=== PATIENT | female | born 1980 | race Two or more races ===

== ENCOUNTER 2019-02-11 08:14 | Emergency (ER) | payer MEDICAID ==
[~2019-02-11] VITALS: Ht 154.9 cm; Wt 58.1 kg
[~2019-02-11 08:14] MED LIST: IBUPROFEN600 MG ORAL; IBUPROFEN600 MG PO; NORCO 5-325 TA1 EACH PO; ROBAXIN-750750 MG PO
[2019-02-11] MEDS ORDERED: NKM (08:25)
--- NOTE | 2019-02-11 08:30 | NUR ---
ED Nurse Note: PT WALKED IN TO ER TODAY FROM HOME. AOX4. PT C/O ABDOMINAL CRAMPING AND VAGINAL BLEEDING X THIS AM AROUND 0500. PT STATES SHE HAS BEEN CHANGING ONE PAD PER HOUR BUT STATES PADS WERE NOT SOAKED. PER PT, BLOOD IS BRIGHT RED WITH NO CLOTS. PT STATES SHE IS 6 WEEKS WHICH WAS CONFIRMED BY PRECISION LATHE OPERATOR, DR. BRIAN BARAJAS. LMP: 12/28/18. LAST APPT WITH OB: 02/04/19.
[2019-02-11 09:03] LABS: APPEARANCE,URINE CLEAR; BASOPHILS % (AUTO) 0.9 % (0.0-2.0); BILIRUBIN, URINE NEGATIVE (NEGATIVE); COLOR,URINE PALE YELLOW; EOSINOPHILS % (AUTO) 2.1 % (0.0-3.0); GLUCOSE, URINE (UA) NEGATIVE (NEGATIVE); HEMATOCRIT 33.9 % (37.0-47.0); HEMOGLOBIN 11.4 G/DL (12.0-16.0); KETONES,URINE NEGATIVE (NEGATIVE); LEUKOCYTE ESTERASE ,URINE NEGATIVE (NEGATIVE); LYMPHOCYTES % (AUTO) 25.8 % (20.0-45.0); MEAN CORPUSCULAR VOLUME 90 FL (80-99); MONOCYTES % (AUTO) 6.3 % (1.0-10.0); NEUTROPHILS % (AUTO) 64.9 % (45.0-75.0); NITRITE,URINE NEGATIVE (NEGATIVE); PH,URINE 5 (4.5-8.0); PLATELET COUNT 272 K/UL (150-450); PROTEIN,URINE NEGATIVE (NEGATIVE); RED BLOOD COUNT 3.78 M/UL (4.20-5.40); RED CELL DISTRIBUTION WIDTH 12.1 % (11.6-14.8); UROBILINOGEN,URINE NORMAL MG/DL (0.0-1.0); WHITE BLOOD COUNT 11.5 K/UL (4.8-10.8)
--- NOTE | 2019-02-11 09:03 | NUR ---
ED Nurse Note: PT TO US VIA TRA.
[2019-02-11 09:16] LABS: ALANINE AMINOTRANSFERASE 22 U/L (12-78); ALBUMIN 3.2 G/DL (3.4-5.0); ALKALINE PHOSPHATASE 51 U/L (46-116); ANION GAP 9 mmol/L (5-15); ASPARTATE AMINO TRANSFERASE 12 U/L (15-37); BILIRUBIN,TOTAL 0.1 MG/DL (0.2-1.0); BLOOD UREA NITROGEN 11 mg/dL (7-18); CALCIUM 8.4 MG/DL (8.5-10.1); CARBON DIOXIDE 25 MMOL/L (21-32); CHLORIDE 104 MMOL/L (98-107); CREATININE 0.8 MG/DL (0.55-1.30); POTASSIUM 3.7 MMOL/L (3.5-5.1); SODIUM 138 MMOL/L (136-145)
--- NOTE | 2019-02-11 09:45 | NUR ---
ED Nurse Note: PT BACK FROM US VIA TRA.
--- NOTE | 2019-02-11 10:26 | Emergency Room Report ---
History of Present Illness General Chief Complaint: Complications Source: Patient Present Illness HPI 38-year-old female presents ED for evaluation. Patient complaining of vaginal bleeding and cramping pain. Started this morning. Pain is dull, 5 out of 10, nonradiating. States she is about 6 weeks . States that she has an IUP confirmed by her [employer]. States that she had 2 prior pregnancies which resulted and and were . States she had preeclampsia on her first . States that she did have one elective . No other aggravating relieving factors. Denies any other associated symptoms Allergies: Coded Allergies: No Known Allergies (Unverified , 02/11/19) Patient History Past Medical History: other - preeclampsia Past Surgical History: Pertinent Family History: none Social History: Denies: smoking, alcohol use, drug use Now: Yes : 4 Immunizations: UTD Reviewed Nursing Documentation: PMH: Agreed; PSxH: Agreed Nursing Documentation-PMH Past Medical History: No Stated History Hx Gastrointestinal Problems: Yes - gallstones Review of Systems All Other Systems: negative except mentioned in HPI Physical Exam Vital Signs Date Time Temp Pulse Resp B/P (MAP) Pulse Ox O2 Delivery O2 Flow Rate FiO2 02/11/19 08:22 98.6 81 16 98/65 99 Room Air Sp02 EP Interpretation: reviewed, normal General Appearance: no apparent distress, alert, GCS 15, non-toxic Head: normocephalic, atraumatic Eyes: bilateral eye normal inspection, bilateral eye PERRL ENT: hearing grossly normal, normal pharynx, no angioedema, normal voice Neck: full range of motion, supple/symm/no masses Respiratory: chest non-tender, lungs clear, normal breath sounds, speaking full sentences Cardiovascular #1: regular rate, rhythm, no edema Cardiovascular #2: 2+ carotid (R), 2+ carotid (L), 2+ radial (R), 2+ radial (L) , 2+ dorsalis pedis (R), 2+ dorsalis pedis (L) Gastrointestinal: normal bowel sounds, non tender, soft, non-distended, no guarding, no rebound Rectal: deferred Genitourinary: normal inspection, no CVA tenderness Musculoskeletal: back normal, gait/station normal, normal range of motion, non- tender Neurologic: alert, oriented x3, responsive, motor strength/tone normal, sensory intact, speech normal Psychiatric: judgement/insight normal, memory normal, mood/affect normal, no suicidal/homicidal ideation Reflexes: 3+ bicep (R), 3+ bicep (L), 3+ tricep (R), 3+ tricep (L), 3+ knee (R) , 3+ knee (L) Skin: normal color, no rash, warm/dry, well hydrated Lymphatic: no adenopathy Medical Decision Making Diagnostic Impression: Primary Impression: Twin gestation in first trimester Qualified Codes: O30.001 - Twin , unspecified number of placenta and unspecified number of amniotic sacs, first trimester Additional Impressions: Threatened Subchorionic hemorrhage Qualified Codes: O41.8X10 - Other specified disorders of amniotic fluid and membranes, first trimester, not applicable or unspecified; O46.8X1 - Other antepartum hemorrhage, first trimester ER Course Hospital Course 38-year-old female presents to ED complaining of cramping pain, spotting. about 6 weeks Differential diagnoses include: gastrits, gastroenterits, ectopic , ovarian torsion/cyst, UTI Clinical course Patient placed on stretcher in ED. After initial history and physical I ordered labs, IV fluids and OB US Labs-no leukocytosis, electrolytes okay, UA negative OB ultrasound- twin gestations with subcorionic hemorrhage. about 7 weeks age Discussed findings with patient. Informed of twin . Explained that subchorionic hemorrhage requires no immediate intervention and be followed up with her [employer]. Given copies of labs and ultrasound report. Safe for discharge and close outpatient follow-up Diagnosis - twin gestation in 1st trimester, threatened , subchorionic hemorrhage Stable and discharged to home. Followup with PMD/[employer]. Return to ED if symptoms recur or worsen Labs Test 02/11/19 08:50 White Blood Count 11.5 K/UL (4.8-10.8) Red Blood Count 3.78 M/UL (4.20-5.40) Hemoglobin 11.4 G/DL (12.0-16.0) Hematocrit 33.9 % (37.0-47.0) Mean Corpuscular Volume 90 FL (80-99) Mean Corpuscular Hemoglobin 30.2 PG (27.0-31.0) Mean Corpuscular Hemoglobin Concent 33.7 G/DL (32.0-36.0) Red Cell Distribution Width 12.1 % (11.6-14.8) Platelet Count 272 K/UL (150-450) Mean Platelet Volume 8.6 FL (6.5-10.1) Neutrophils (%) (Auto) 64.9 % (45.0-75.0) Lymphocytes (%) (Auto) 25.8 % (20.0-45.0) Monocytes (%) (Auto) 6.3 % (1.0-10.0) Eosinophils (%) (Auto) 2.1 % (0.0-3.0) Basophils (%) (Auto) 0.9 % (0.0-2.0) Urine Color Pale yellow Urine Appearance Clear Urine pH 5 (4.5-8.0) Urine Specific Chancellor 1.010 (1.005-1.035) Urine Protein Negative (NEGATIVE) Urine Glucose (UA) Negative (NEGATIVE) Urine Ketones Negative (NEGATIVE) Urine Blood 4+ (NEGATIVE) Urine Nitrite Negative (NEGATIVE) Urine Bilirubin Negative (NEGATIVE) Urine Urobilinogen Normal MG/DL (0.0-1.0) Urine Leukocyte Esterase Negative (NEGATIVE) Urine RBC 2-4 /HPF (0 - 2) Urine WBC 2-4 /HPF (0 - 2) Urine Squamous Epithelial Cells Few /LPF (NONE/OCC) Urine Bacteria Occasional /HPF (NONE) Urine HCG, Qualitative Positive (NEGATIVE) Sodium Level 138 MMOL/L (136-145) Potassium Level 3.7 MMOL/L (3.5-5.1) Chloride Level 104 MMOL/L (98-107) Carbon Dioxide Level 25 MMOL/L (21-32) Anion Gap 9 mmol/L (5-15) Blood Urea Nitrogen 11 mg/dL (7-18) Creatinine 0.8 MG/DL (0.55-1.30) Estimat Glomerular Filtration Rate > 60 mL/min (>60) Glucose Level 81 MG/DL (74-106) Calcium Level 8.4 MG/DL (8.5-10.1) Total Bilirubin 0.1 MG/DL (0.2-1.0) Aspartate Amino Transf (AST/SGOT) 12 U/L (15-37) Alanine Aminotransferase (ALT/SGPT) 22 U/L (12-78) Alkaline Phosphatase 51 U/L (46-116) Total Protein 6.5 G/DL (6.4-8.2) Albumin 3.2 G/DL (3.4-5.0) Globulin 3.3 g/dL Albumin/Globulin Ratio 1.0 (1.0-2.7) Lipase 131 U/L (73-393) Human Chorionic Gonadotropin, Quant 280839 mIU/mL (1-6) CT/MRI/US Diagnostic Results CT/MRI/US Diagnostic Results : Imaging Test Ordered: OB US Impression Findings: There is an intrauterine twin gestation. 2 gestational sacs are demonstrated. That closer to the cervix, labeled twin A, demonstrates a crown- rump length of 9 mm, corresponding to an estimated gestational age of 6 weeks 6 days. It demonstrates positive heart activity, heart rate 142 bpm. That labeled B demonstrates a crown-rump length of 10 mm, corresponding to estimated gestational age of 7 weeks one day. It demonstrates positive heart activity, heart rate 133 bpm. There is a sizable subchorionic hemorrhage in the lower uterine segment posterior to the twin A gestational sac. This measures approximately 3.1 x 2 cm. The cervix is closed, endocervical canal measures 4.2 cm in length. The uterus measures 11.6 any length by 5.4 cm AP, is retroflexed. The right ovary measures 2.9 cm in length. The left ovary could not be demonstrated. Right ovary demonstrates normal blood flow on Doppler imaging. No free cul-de-sac fluid. Last Vital Signs Date Time Temp Pulse Resp B/P (MAP) Pulse Ox O2 Delivery O2 Flow Rate FiO2 02/11/19 08:22 98.6 81 16 98/65 99 Room Air Status: improved Disposition: HOME, SELF-CARE Condition: Stable Referrals: NON PHYSICIAN (PCP) José Miguel Hernandez MD Feb 11, 2019 10:26
--- NOTE | 2019-02-11 11:06 | Diagnostic Imaging Report ---
Indication: Vaginal bleeding and cramping, patient Technique: Transabdominal images only. Doppler interrogation of the bilateral ovaries. Comparison: none Findings: There is an intrauterine twin gestation. 2 gestational sacs are demonstrated. That closer to the cervix, labeled twin A, demonstrates a crown-rump length of 9 mm, corresponding to an estimated gestational age of 6 weeks 6 days. It demonstrates positive heart activity, heart rate 142 bpm. That labeled B demonstrates a crown-rump length of 10 mm, corresponding to estimated gestational age of 7 weeks one day. It demonstrates positive heart activity, heart rate 133 bpm. There is a sizable subchorionic hemorrhage in the lower uterine segment posterior to the twin A gestational sac. This measures approximately 3.1 x 2 cm. The cervix is closed, endocervical canal measures 4.2 cm in length. The uterus measures 11.6 any length by 5.4 cm AP, is retroflexed. The right ovary measures 2.9 cm in length. The left ovary could not be demonstrated. Right ovary demonstrates normal blood flow on Doppler imaging. No free cul-de-sac fluid. Impression: Live twin , estimated gestational age is 7 weeks one day and 6 weeks 6 days by crown-rump length measurement. 3.1 x 2 cm subchorionic hemorrhage noted Normal right ovary. Nonvisualized left ovary.
--- NOTE | 2019-02-11 11:10 | NUR ---
HAND-OFF: Report given to TIANA VILLALOBOS
[2019-02-11 13:00] VITALS: BP 105/72
--- NOTE | 2019-02-11 13:00 | NUR ---
ER DISCHARGE NOTE: Patient is cleared to be discharged per ERMD, pt is aox4, on room air, with stable vital signs. pt was given dc and prescription instructions, pt was able to verbalize understanding, pt id band and iv site removed without complications. pt is able to ambulate with steady gait. pt took all belongings.
== END 2019-02-11 13:00 | disposition home or self-care (01) ==
LOC: EMR 08:46
DX: O30.001 Twin pregnancy, unspecified number of placenta and unspecified number of amniotic sacs, first trimester (principal); O41.8X10 Other specified disorders of amniotic fluid and membranes, first trimester, not applicable or unspecified; O20.0 Threatened abortion; Z3A.01 Less than 8 weeks gestation of pregnancy
CPT/HCPCS: 36415; 76801; 76830; 80053; 81003; 81025; 83690; 84702; 85025; 96360; 99284

== ENCOUNTER 2020-04-28 17:22 | Emergency (ER) | payer MEDICAID ==
[~2020-04-28] VITALS: Ht 154.9 cm; Wt 61.2 kg
[~2020-04-28 17:22] MED LIST changes: +NKM
[2020-04-28 17:43] VITALS: BP 123/78
[2020-04-28 18:08] LABS: APPEARANCE,URINE CLEAR; BILIRUBIN, URINE NEGATIVE (NEGATIVE); COLOR,URINE PALE YELLOW; GLUCOSE, URINE (UA) NEGATIVE (NEGATIVE); KETONES,URINE 1+ (NEGATIVE); LEUKOCYTE ESTERASE ,URINE NEGATIVE (NEGATIVE); NITRITE,URINE NEGATIVE (NEGATIVE); PH,URINE 6 (4.5-8.0); PROTEIN,URINE NEGATIVE (NEGATIVE); UROBILINOGEN,URINE NORMAL MG/DL (0.0-1.0)
[2020-04-28 18:28] LABS: BASOPHILS % (AUTO) 0.6 % (0.0-2.0); EOSINOPHILS % (AUTO) 0.7 % (0.0-3.0); HEMATOCRIT 44.1 % (37.0-47.0); HEMOGLOBIN 14.6 G/DL (12.0-16.0); LYMPHOCYTES % (AUTO) 24.3 % (20.0-45.0); MEAN CORPUSCULAR VOLUME 92 FL (80-99); MONOCYTES % (AUTO) 5.4 % (1.0-10.0); PLATELET COUNT 248 K/UL (150-450); RED CELL DISTRIBUTION WIDTH 12.4 % (11.6-14.8); WHITE BLOOD COUNT 10.1 K/UL (4.8-10.8)
--- NOTE | 2020-04-28 18:28 | Emergency Room Report ---
History of Present Illness General Chief Complaint: Female Urogenital Problems Source: Patient Present Illness HPI 39-year-old female presents to the emergency department complaining of nonpainful vaginal bleeding x3 weeks. Patient reports 1 week prior to onset of her symptoms she had her period which is regular and typically very light. She denies suspicion for she states she has 2 8-month-old twins that she is not breast-feeding at home. She denies abdominal tenderness or pain. She denies nausea, vomiting, fevers, chills. Patient denies history of STI. She denies history of fibroids. She reports feeling fatigued more than normal she denies syncope or dizziness. Pt. with hx of migraines. Allergies: Coded Allergies: No Known Allergies (Unverified , 02/11/19) COVID-19 Screening Contact w/high risk pt: No Experienced COVID-19 symptoms?: No COVID-19 Testing performed DECISION SUPPORT MANAGER: Yes COVID-19 Screening: Negative COVID-19 COVID-19 Testing Source: [facility] - 2 weeks ago Patient History Past Medical History: see triage record Past Surgical History: none Pertinent Family History: none Now: No : 3 Para: 4 Reviewed Nursing Documentation: PMH: Agreed; PSxH: Agreed Nursing Documentation-PMH Past Medical History: No Stated History Hx Gastrointestinal Problems: Yes - gallstones Review of Systems All Other Systems: negative except mentioned in HPI Physical Exam Vital Signs Date Time Temp Pulse Resp B/P (MAP) Pulse Ox O2 Delivery O2 Flow Rate FiO2 04/28/20 17:27 97.0 83 20 114/79 (91) 100 Room Air Sp02 EP Interpretation: reviewed, normal General Appearance: no apparent distress, alert, GCS 15, non-toxic Head: normocephalic, atraumatic Eyes: bilateral eye normal inspection, bilateral eye PERRL ENT: hearing grossly normal, normal voice Neck: full range of motion Respiratory: lungs clear, normal breath sounds, speaking full sentences Cardiovascular #1: regular rate, rhythm Gastrointestinal: normal bowel sounds, non tender, soft, non-distended, no guarding Rectal: deferred Genitourinary: normal inspection, no CVA tenderness, adnexa normal, ext genitalia/vag normal, other - scant dark blood in vaginal vault Musculoskeletal: normal range of motion, gait/station normal, non-tender Neurologic: alert, motor strength/tone normal, oriented x3, sensory intact, responsive, speech normal Psychiatric: judgement/insight normal Skin: no rash, normal color Medical Decision Making PA Attestation Dr. Carnes Is my supervising Physician whom patient management has been discussed with. Diagnostic Impression: Primary Impression: Menorrhagia Qualified Codes: N92.0 - Excessive and frequent menstruation with regular cycle ER Course 39-year-old female presents to the emergency department complaining of nonpainful vaginal bleeding x3 weeks. Patient reports 1 week prior to onset of her symptoms she had her period which is regular and typically very light. She denies suspicion for she states she has 2 8-month-old twins that she is not breast-feeding at home. She denies abdominal tenderness or pain. She denies nausea, vomiting, fevers, chills. Patient denies history of STI. She denies history of fibroids. She reports feeling fatigued more than normal she denies syncope or dizziness. Pt. with hx of migraines. Ddx considered but are not limited to: Fibroid, ectopic , Malignancy, Spontaneous , , DUB Vital signs: are WNL, pt. is afebrile H&PE are most consistent with: Menorrhagia ORDERS: -CBC: WNL- no evidence of anemia -hcg quant: negative less than 1 - ABO type and Screen: O positive Pelvic/ abdominal US; WNL ED INTERVENTIONS: None at this time. -I do not identify an emergent condition at this time. With current presentation , pt. is stable for close outpatient follow up and conservative treatment. D/ w pt. to return promptly to ED with worsening or new symptoms.- Pt. verbalizes' understanding and agreement with proposed treatment plan.proposed treatment plan. DISCHARGE: At this time pt. is stable for d/c to home. Will provide printed patient care instructions, and any necessary prescriptions. Care plan and follow up instructions have been discussed with the patient prior to discharge. Labs Test 04/28/20 17:30 04/28/20 17:50 Urine Color Pale yellow Urine Appearance Clear Urine pH 6 (4.5-8.0) Urine Specific Ferguson 1.010 (1.005-1.035) Urine Protein Negative (NEGATIVE) Urine Glucose (UA) Negative (NEGATIVE) Urine Ketones 1+ (NEGATIVE) Urine Blood 3+ (NEGATIVE) Urine Nitrite Negative (NEGATIVE) Urine Bilirubin Negative (NEGATIVE) Urine Urobilinogen Normal MG/DL (0.0-1.0) Urine Leukocyte Esterase Negative (NEGATIVE) Urine RBC 2-4 /HPF (0 - 2) Urine WBC 0-2 /HPF (0 - 2) Urine Squamous Epithelial Cells Few /LPF (NONE/OCC) Urine Bacteria Occasional /HPF (NONE) White Blood Count 10.1 K/UL (4.8-10.8) Red Blood Count 4.80 M/UL (4.20-5.40) Hemoglobin 14.6 G/DL (12.0-16.0) Hematocrit 44.1 % (37.0-47.0) Mean Corpuscular Volume 92 FL (80-99) Mean Corpuscular Hemoglobin 30.3 PG (27.0-31.0) Mean Corpuscular Hemoglobin Concent 33.1 G/DL (32.0-36.0) Red Cell Distribution Width 12.4 % (11.6-14.8) Platelet Count 248 K/UL (150-450) Mean Platelet Volume 9.8 FL (6.5-10.1) Neutrophils (%) (Auto) 69.0 % (45.0-75.0) Lymphocytes (%) (Auto) 24.3 % (20.0-45.0) Monocytes (%) (Auto) 5.4 % (1.0-10.0) Eosinophils (%) (Auto) 0.7 % (0.0-3.0) Basophils (%) (Auto) 0.6 % (0.0-2.0) Sodium Level 139 MMOL/L (136-145) Potassium Level 3.8 MMOL/L (3.5-5.1) Chloride Level 102 MMOL/L (98-107) Carbon Dioxide Level 24 MMOL/L (21-32) Anion Gap 13 mmol/L (5-15) Blood Urea Nitrogen 11 mg/dL (7-18) Creatinine 1.0 MG/DL (0.55-1.30) Estimat Glomerular Filtration Rate > 60 mL/min (>60) Glucose Level 95 MG/DL (74-106) Calcium Level 8.8 MG/DL (8.5-10.1) Total Bilirubin 0.6 MG/DL (0.2-1.0) Aspartate Amino Transf (AST/SGOT) 18 U/L (15-37) Alanine Aminotransferase (ALT/SGPT) 23 U/L (12-78) Alkaline Phosphatase 59 U/L (46-116) Total Protein 8.1 G/DL (6.4-8.2) Albumin 4.6 G/DL (3.4-5.0) Globulin 3.5 g/dL Albumin/Globulin Ratio 1.3 (1.0-2.7) Human Chorionic Gonadotropin, Quant < 1 mIU/mL (1-6) CT/MRI/US Diagnostic Results CT/MRI/US Diagnostic Results : Imaging Test Ordered: Ultrasound pelvis transabdominal and transvaginal Impression "no acute abnormality." Per official radiology report- Please see report for specific details. Last Vital Signs Date Time Temp Pulse Resp B/P (MAP) Pulse Ox O2 Delivery O2 Flow Rate FiO2 04/28/20 17:43 97.0 79 18 123/78 99 Room Air Disposition: HOME, SELF-CARE Condition: Stable Referrals: NON PHYSICIAN (PCP) Cinthia Goode Comp. [facility] + [facility] Patient Instructions: Menorrhagia Additional Instructions: Take medications as directed. Follow up with a DUMPSTER OPERATOR within 3 days, even if your symptoms have resolved. Return sooner to ED if new symptoms occur, or current symptoms become worse. - Please note that this Emergency Department Report was dictated using [employer] technology software, occasionally this can lead to erroneous entry secondary to interpretation by the dictation equipment. Leigha Mena Apr 28, 2020 18:28
[2020-04-28 18:29] LABS: ANION GAP 13 mmol/L (5-15); BLOOD UREA NITROGEN 11 mg/dL (7-18); CALCIUM 8.8 MG/DL (8.5-10.1); CARBON DIOXIDE 24 MMOL/L (21-32); CHLORIDE 102 MMOL/L (98-107); POTASSIUM 3.8 MMOL/L (3.5-5.1); SODIUM 139 MMOL/L (136-145)
[2020-04-28 18:34] LABS: ALANINE AMINOTRANSFERASE 23 U/L (12-78); ALBUMIN 4.6 G/DL (3.4-5.0); ALBUMIN/GLOBULIN RATIO 1.3 (1.0-2.7); ALKALINE PHOSPHATASE 59 U/L (46-116); ASPARTATE AMINO TRANSFERASE 18 U/L (15-37); BILIRUBIN,TOTAL 0.6 MG/DL (0.2-1.0)
--- NOTE | 2020-04-28 19:10 | Diagnostic Imaging Report ---
ADDENDUM - Added by Mehrdad Gomez MD on 04/28/2020 7:22 PM (-07:00) Addendum: Exam: Ultrasound pelvis transabdominal and transvaginal, complete. Technique: Real-time complete transabdominal and transvaginal pelvic ultrasound with image documentation. Transvaginal was used for better evaluation of the endometrium and adnexa. EXAM: US Pelvis Transabdominal, Complete CLINICAL HISTORY: PAIN TECHNIQUE: Real-time complete transabdominal pelvic ultrasound with image documentation. COMPARISON: No relevant prior studies available. FINDINGS: Uterus/cervix: The uterus measures 7.9 x 5.3 x 3.9 cm. Endometrial complex measures 1.2 mm. No myometrial mass. Multiple nabothian cysts in the cervix. Right ovary: Right ovary measures 2.0 x 1.3 x 1.8 cm. No suspicious lesion. No torsion. Left ovary: The left ovary measures 2.9 x 1.1 x 2.2 cm. No suspicious lesion. No torsion. Free fluid: No free fluid. IMPRESSION: No acute abnormality.
--- NOTE | 2020-04-28 19:21 | Diagnostic Imaging Report ---
EXAM: US Pelvis Transabdominal and Transvaginal, Complete CLINICAL HISTORY: BLD TECHNIQUE: Real-time complete transabdominal and transvaginal pelvic ultrasound with image documentation. Transvaginal imaging was used for better evaluation of the endometrium and adnexa. COMPARISON: No relevant prior studies available. FINDINGS: Uterus/cervix: The uterus measures 7.9 x 5.3 x 3.9 cm. Endometrial complex measures 1.2 mm. No myometrial mass. Multiple nabothian cysts in the cervix. Right ovary: Right ovary measures 2.0 x 1.3 x 1.8 cm. No suspicious lesion. No torsion. Left ovary: The left ovary measures 2.9 x 1.1 x 2.2 cm. No suspicious lesion. No torsion. Free fluid: No free fluid. IMPRESSION: No acute abnormality.
[2020-04-28 19:55] VITALS: BP 123/78
== END 2020-04-28 19:55 | disposition home or self-care (01) ==
LOC: EMR 17:44
DX: N92.0 Excessive and frequent menstruation with regular cycle (principal)
CPT/HCPCS: 36415; 76830; 76856; 80053; 81003; 84702; 85025; 86850; 86900; 86901; 96360; J7030; Z7502; 99284